=== PATIENT | male | born 1990 | race Caucasian/White ===

== ENCOUNTER → 2019-05-20 | Outpatient (CLI) | payer OTHER | END | disposition home or self-care (01) | LOC: CFH 12:17 | PROVIDERS: ATTEND Family Medicine | DX: M54.9 Dorsalgia, unspecified (principal) | CPT/HCPCS: 72100 ==

== ENCOUNTER 2019-06-15 16:26 | Emergency (ER) | payer OTHER ==
[~2019-06-15] VITALS: Ht 182.9 cm; Wt 101.0 kg
--- NOTE | 2019-06-15 16:41 | NUR ---
Mariam thomas in [facility] - 06/15/19 at 1642 by CALLUM DIRECTOR OF RECREATION THERAPY: EXAM BY DR WHEAT, NO CODE NEURO TO BE CALLED AT THIS TIME.
--- NOTE | 2019-06-15 17:03 | NUR ---
THIS IS A 28 YO MALE COMING IN FOR "ABOUT A MONTH AGO, I STARTED GETTING NUMBNESS IN MY FEET, MOSTLY MY LEFT SIDE TOES. WHEN IT STARTED. I STOPPED TAKING THE MED FOR MY PSORIAC ARTHRITS. SINCE IT IS GETTING WORSE, GETTING PAIN AND SPASMS IN MY LEGS. THE PAIN IN MY BACK HAS GONE UP SEVERLY" LUMBAR SPINE TENDER TO PALPATION, PATIENT STATES 10/10 PAIN AT ALL TIMES. DENIES PAIN OVER KIDNEYS, DENIES PAIN TO PALPATION ON BILAT SIDES OF SPINE. MEDICAL HX CONSISTS OF PSORIATIC ARTHRITIS, DENIES ANY OTHER MEDICAL HX. WAS TAKING HUMIRA, BUT STOPPED WHEN PAIN AND NUMBNESS STARTED. VSS IN TRIAGE, NAD, CALL LIGHT IN REACH, DENIES NEEDS AT THIS TIME.
--- NOTE | 2019-06-15 17:05 | NUR ---
PATIENT STATES HE IS MORE COMFORTABLE STANDING AT THIS TIME.
[2019-06-15] MEDS ORDERED: HYDROmorphone 2 MG/ML, 1ML ONE (17:25)
--- NOTE | 2019-06-15 17:28 | NUR ---
TWO SETS OF BLOOD CULTURES COLLECTED. PIV STARTED. UA COLLECTED. PATIENT MEDICATED PER EMAR, IVF RUNNING.
[2019-06-15] MEDS ORDERED: SODIUM CHLORIDE 0.9% 1,000 ML IV ONE (17:30)
[2019-06-15] MEDS ORDERED: HYDROmorphone 2 MG/ML, 1ML IVPush PRN (17:30)
[2019-06-15] MEDS ORDERED: SODIUM CHLORIDE FLUSH 10ML SYR IVF ONE (17:30)
[2019-06-15 17:34] LABS: BASOPHILS # (AUTO) 0.02 x10^3/uL (0-0.1); BASOPHILS % (AUTO) 0 % (0-1); EOSINOPHILS # (AUTO) 0.02 x10^3/uL (0-0.4); EOSINOPHILS % (AUTO) 0 % (1-7); LYMPHOCYTES # (AUTO) 1.97 x10^3/uL (1-3.4); LYMPHOCYTES % (AUTO) 31 % (22-44); MD NO; MEAN CORPUSCULAR HEMOGLOBIN 32.9 pg (27.5-34.5); MEAN CORPUSCULAR HGB CONC 33.7 g/dL (33.2-36.2); MEAN CORPUSCULAR VOLUME 97.8 fL (81-97); MEAN PLATELET VOLUME 8.2 fL (7.4-10.4); MONOCYTES # (AUTO) 0.45 x10^3/uL (0.2-0.8); MONOCYTES % (AUTO) 7 % (2-9); NEUTROPHILS # (AUTO) 3.99 x10^3/uL (1.8-6.8); NEUTROPHILS % (AUTO) 62 % (42-75); PLATELET COUNT 258 x10^3/uL (130-400); RED BLOOD COUNT 4.93 x10^6/uL (4.38-5.82); RED CELL DISTRIBUTION WIDTH 13.6 % (9.4-14.8)
[2019-06-15 17:37] LABS: INTERNATIONAL NORMALIZED RATIO 0.99 (0.93-1.1); PROTHROMBIN TIME 10.4 Seconds (9.6-11.5)
[2019-06-15 17:38] LABS: ALANINE AMINOTRANSFERASE 28 U/L (12-78); ALBUMIN 4.6 g/dL (3.4-5.0); ANION GAP 7 mmol/L (5-15); CALCIUM 9.2 mg/dL (8.5-10.1); CHLORIDE 109 mmol/L (98-107); CREATININE 1.21 mg/dL (0.7-1.3)
[2019-06-15 17:41] LABS: ALKALINE PHOSPHATASE 59 U/L (45-117); BILIRUBIN,TOTAL 0.5 mg/dL (0.2-1.0); TOTAL PROTEIN 8.1 g/dL (6.4-8.2)
[2019-06-15 17:47] LABS: MICROSCOPIC NOT IND
[2019-06-15 17:51] LABS: CULTURE INDICATED? NO
--- NOTE | 2019-06-15 17:58 | NUR ---
MRI SCREENING FORM COMPLETED. NEEDS TO BE REVIEWED AND SIGNED BY BAKERY TEAM MEMBER AND PATIENT Addendum: 06/15/19 at 1806 by RAHEEM PATIENT SIGNED MRI SCREENING FORM, FAXED FORM TO MRI
--- NOTE | 2019-06-15 18:15 | NUR ---
PATIENT TO MRI
[2019-06-15] MEDS ORDERED: GADOTERATE 10 MMOL/20 ML SYR ONE (18:44)
--- NOTE | 2019-06-15 18:56 | NUR ---
PATIENT BACK FROM MRI
--- NOTE | 2019-06-15 18:59 | NUR ---
PATIENT AMBULATED WITH STEADY GAIT TO RESTROOM
[2019-06-15] MEDS ORDERED: DEXAMETHASONE 4 MG/ML, 1ML ONE (19:26)
[2019-06-15] MEDS ORDERED: DEXAMETHASONE 4 MG/ML, 1ML IVPush ONE (19:30)
[2019-06-15 19:40] VITALS: BP 117/66
== END 2019-06-15 19:49 | disposition home or self-care (01) ==
LOC: ED 17:39
DX: M51.16 Intervertebral disc disorders with radiculopathy, lumbar region (principal)
CPT/HCPCS: 36415; 72158; 80053; 81003; 83605; 85025; 85610; 85730; 87040; 96374; 96375; 99284; A9575; J1100; J1170; J7030

== ENCOUNTER 2020-09-23 19:38 | Emergency (ER) | payer OTHER ==
[~2020-09-23] VITALS: Ht 185.4 cm; Wt 110.0 kg
[2020-09-23 22:32] VITALS: BP 133/81
== END 2020-09-23 23:02 | disposition home or self-care (01) ==
LOC: ED 22:45
DX: M79.662 Pain in left lower leg (principal); M79.661 Pain in right lower leg; M79.89 Other specified soft tissue disorders
CPT/HCPCS: 93970; 99284

== ENCOUNTER → 2020-11-26 | Outpatient (CLI) | payer OTHER | END | disposition home or self-care (01) | LOC: CFH 08:17 | PROVIDERS: ATTEND Internal Medicine | DX: M79.641 Pain in right hand (principal); M79.642 Pain in left hand; M79.671 Pain in right foot; M79.672 Pain in left foot; M54.5 Low back pain; M53.3 Sacrococcygeal disorders, not elsewhere classified | CPT/HCPCS: 72202; 77077 ==